=== PATIENT | female | born 1930 | race Caucasian/White ===

== ENCOUNTER 2020-03-12 21:30 | Emergency (ER) | payer BC, MEDICARE ==
[~2020-03-12] VITALS: Ht 162.6 cm; Wt 77.3 kg
[2020-03-12 23:14] VITALS: BP 137/59
== END 2020-03-12 23:43 | disposition home or self-care (01) ==
LOC: ER 21:31
DX: M54.6 Pain in thoracic spine (principal); M40.294 Other kyphosis, thoracic region; M81.0 Age-related osteoporosis without current pathological fracture; W01.0XXA Fall on same level from slipping, tripping and stumbling without subsequent striking against object, initial encounter; Z91.81 History of falling; Y93.89 Activity, other specified; Y92.89 Other specified places as the place of occurrence of the external cause; Y99.8 Other external cause status
CPT/HCPCS: 72128; 72131; 99285